=== PATIENT | male | born 1935 | race Caucasian/White ===

== ENCOUNTER 2019-06-10 00:40 | Day surgery (SDC) | payer MEDICARE, OTHER ==
[~2019-06-10 00:40] MED LIST: ATHLETE'S FOO35.4 GM; Anti-Diarrheal2 MG PO; CHRO200; Flomax0.4 MG PO; HCTZ/LOSARTAN; HYDR1TAB94 PO; LOSARTAN-HCTZ1 EACH PO; NYSTRITC TOP; VANCO 1.251.25 GM/25 IV; ZINC220
[2019-06-10 08:26] LABS: Creatinine, Blood 0.88 mg/dL (0.60-1.20); Vancomycin, Trough 8.9 ug/mL (5.0-10.0)
== END 2019-06-10 10:15 | disposition home or self-care (01) ==
LOC: ATC 00:40
PROVIDERS: Hospitalist
DX: L03.116 Cellulitis of left lower limb (principal); L03.115 Cellulitis of right lower limb; I87.2 Venous insufficiency (chronic) (peripheral); I10 Essential (primary) hypertension; N40.0 Benign prostatic hyperplasia without lower urinary tract symptoms; D64.9 Anemia, unspecified; Z79.2 Long term (current) use of antibiotics; Z79.899 Other long term (current) drug therapy
CPT/HCPCS: 80202; 82565; 96365; J3370

== ENCOUNTER 2019-06-11 01:56 | Day surgery (SDC) | payer MEDICARE, OTHER | END 2019-06-11 08:28 | disposition home or self-care (01) | LOC: ATC 01:56 | DX: L03.116 Cellulitis of left lower limb (principal); L03.115 Cellulitis of right lower limb; I87.2 Venous insufficiency (chronic) (peripheral); I10 Essential (primary) hypertension; N40.0 Benign prostatic hyperplasia without lower urinary tract symptoms; D64.9 Anemia, unspecified; Z79.2 Long term (current) use of antibiotics; Z79.899 Other long term (current) drug therapy | CPT/HCPCS: 96365; J0878 ==

== ENCOUNTER 2019-06-12 07:12 | Day surgery (SDC) | payer MEDICARE, OTHER ==
[2019-06-12 10:00] LABS: Creatinine, Blood 0.86 mg/dL (0.60-1.20)
[2019-06-15 09:20] LABS: Glomerular Filtration Rate >60 (60-)
== END 2019-06-12 09:20 | disposition home or self-care (01) ==
LOC: ATC 07:12
PROVIDERS: Hospitalist
DX: L03.116 Cellulitis of left lower limb (principal); L03.115 Cellulitis of right lower limb; I87.2 Venous insufficiency (chronic) (peripheral); I10 Essential (primary) hypertension; N40.0 Benign prostatic hyperplasia without lower urinary tract symptoms; D64.9 Anemia, unspecified; Z79.2 Long term (current) use of antibiotics; Z79.899 Other long term (current) drug therapy
CPT/HCPCS: 82565; 96365; J0878

== ENCOUNTER 2019-06-13 08:21 | Day surgery (SDC) | payer MEDICARE, OTHER ==
[2019-06-14] MEDS ORDERED: CUBICIN RF500 MG IV (07:52)
== END 2019-06-13 09:32 | disposition home or self-care (01) ==
LOC: ATC 08:21
DX: L03.116 Cellulitis of left lower limb (principal); L03.115 Cellulitis of right lower limb; I87.2 Venous insufficiency (chronic) (peripheral); I10 Essential (primary) hypertension; N40.0 Benign prostatic hyperplasia without lower urinary tract symptoms; D64.9 Anemia, unspecified; Z79.2 Long term (current) use of antibiotics; Z79.899 Other long term (current) drug therapy
CPT/HCPCS: 96365; J0878

== ENCOUNTER 2019-06-14 00:03 | Day surgery (SDC) | payer MEDICARE, OTHER ==
[2019-06-14] MEDS ORDERED: CUBICIN RF500 MG IV (07:52)
== END 2019-06-14 08:50 | disposition home or self-care (01) ==
LOC: ATC 00:03
DX: L03.116 Cellulitis of left lower limb (principal); L03.115 Cellulitis of right lower limb; I87.2 Venous insufficiency (chronic) (peripheral); I10 Essential (primary) hypertension; D64.9 Anemia, unspecified; Z79.2 Long term (current) use of antibiotics; Z79.899 Other long term (current) drug therapy
CPT/HCPCS: 96365; J0878

== ENCOUNTER 2019-06-15 00:06 | Day surgery (SDC) | payer MEDICARE, OTHER ==
[~2019-06-15 00:06] MED LIST changes: +CUBICIN RF500 MG IV
== END 2019-06-15 09:05 | disposition home or self-care (01) ==
LOC: ATC 00:06
DX: L03.116 Cellulitis of left lower limb (principal); L03.115 Cellulitis of right lower limb; I87.2 Venous insufficiency (chronic) (peripheral); I10 Essential (primary) hypertension; N40.0 Benign prostatic hyperplasia without lower urinary tract symptoms; D64.9 Anemia, unspecified; Z79.2 Long term (current) use of antibiotics; Z79.899 Other long term (current) drug therapy
CPT/HCPCS: 96365; J0878

== ENCOUNTER 2019-06-16 00:10 | Day surgery (SDC) | payer MEDICARE, OTHER | END 2019-06-16 08:52 | disposition home or self-care (01) | LOC: ATC 00:10 | DX: L03.116 Cellulitis of left lower limb (principal); L03.115 Cellulitis of right lower limb; I87.2 Venous insufficiency (chronic) (peripheral); I10 Essential (primary) hypertension; N40.0 Benign prostatic hyperplasia without lower urinary tract symptoms; D64.9 Anemia, unspecified; Z79.2 Long term (current) use of antibiotics; Z79.899 Other long term (current) drug therapy | CPT/HCPCS: 96365; J0878 ==

== ENCOUNTER 2020-11-22 12:24 | Emergency (ER) | payer OTHER, MEDICARE ==
[~2020-11-22] VITALS: Ht 167.6 cm; Wt 72.6 kg
[2020-11-22 13:21] LABS: BASOPHILS ABSOLUTE AUTO 0.03 K/mm3 (0.00-0.23); BASOPHILS PERCENT AUTO 1 % (0-2); EOSINOPHILS ABSOLUTE AUTO 0.01 K/mm3 (0.00-0.68); EOSINOPHILS PERCENT AUTO 0 % (0-6); Hematocrit 33.8 % (37.0-53.0); Hemoglobin 11.3 g/dL (13.5-17.5); IMMATURE GRAN ABSOLUTE AUTO 0.01 K/mm3 (0.00-0.10); IMMATURE GRAN PERCENT AUTO 0 % (0-1); LYMPHOCYTES ABSOLUTE AUTO 1.19 K/mm3 (0.84-5.20); LYMPHOCYTES PERCENT AUTO 21 % (21-46); MONOCYTES ABSOLUTE AUTO 0.25 K/mm3 (0.16-1.47); MONOCYTES PERCENT AUTO 4 % (4-13); Mean Corpuscular HGB 30.5 pg (26.0-34.0); Mean Corpuscular HGB Conc 33.4 g/dL (31.5-36.5); Mean Corpuscular Volume 91 fL (80-100); Mean Platelet Volume 10.5 fL (9.1-12.4); NEUTROPHILS ABSOLUTE AUTO 4.24 K/mm3 (1.96-9.15); NEUTROPHILS PERCENT AUTO 74 % (41-73); Platelet Count 184 K/mm3 (150-400); RDW Coefficient Variation 14.1 % (11.7-14.2); RDW Standard Deviation 47.6 fL (35.1-46.3); Red Blood Cell Count 3.71 M/mm3 (4.30-5.90); White Blood Cell Count 5.73 K/mm3 (4.00-11.30)
[2020-11-22] MEDS ORDERED: Gormel75 GM TOP (13:24)
[2020-11-22] MEDS ORDERED: GABA100 PO (13:24)
[2020-11-22] MEDS ORDERED: Tetrahydrozolin15 ML BOTHEYES (13:24)
[2020-11-22] MEDS ORDERED: LOSARTAN-HCTZ1 EACH PO (13:25)
[2020-11-22] MEDS ORDERED: Acetaminophen325 M1 PO (13:25)
[2020-11-22 13:27] LABS: Alanine Aminotransfer (ALT/SGP 115 U/L (12-78); Albumin, Blood 2.8 g/dL (3.4-5.0); Albumin/Globulin Ratio 0.7 (0.8-1.8); Alk Phos 133 U/L (50-136); Anion Gap 7 mmol/L (6-16); Aspartate Aminotrans (AST/SGOT 150 U/L (12-37); Bilirubin, Total 0.3 mg/dL (0.1-1.0); Blood Urea Nitrogen 25 mg/dL (8-24); CO2, Blood 26 mmol/L (21-32); Calcium, Blood 8.4 mg/dL (8.5-10.1); Chloride, Blood 100 mmol/L (98-108); Creatinine, Blood 1.04 mg/dL (0.60-1.20); Glomerular Filtration Rate >60 (60-); Glucose, Blood 122 mg/dL (70-99); Potassium, Blood 3.4 mmol/L (3.5-5.5); Sodium, Blood 133 mmol/L (136-145); Total Protein, Blood 6.8 g/dL (6.4-8.2)
[2020-11-22] MEDS ORDERED: BISMATROL525 MG/15 PO (13:29)
[2020-11-22] MEDS ORDERED: MELA3 PO (13:30)
[2020-11-22 15:31] LABS: Source, Urine Catheter
[2020-11-22 15:51] LABS: Appearance, Urine Clear (Clear); Bilirubin, Urine Neg (Neg); Blood, Urine Neg (Neg); Color, Urine Yellow (P-Yellow); Glucose Qualitative, Urine Neg (Neg); Ketones, Urine Neg (Neg); Leukocyte Esterase, Urine Neg (Neg); Nitrite, Urine Neg (Neg); Protein, Urine Neg (Neg); Urobilinogen, Urine NORM (Normal)
[2020-11-22] MEDS ORDERED: LEVO750 PO (17:39)
== END 2020-11-22 17:55 | disposition home or self-care (01) ==
LOC: ER 12:24
PROVIDERS: Emergency Medicine; Student in an Organized Health Care Education/Training Program
DX: Z04.3 Encounter for examination and observation following other accident (principal); R91.8 Other nonspecific abnormal finding of lung field; I10 Essential (primary) hypertension; Z79.899 Other long term (current) drug therapy; W18.30XA Fall on same level, unspecified, initial encounter
CPT/HCPCS: 36415; 70450; 71045; 72170; 80053; 81003; 83735; 84484; 85025; 93005; 93010; 99285-25; A9270